=== PATIENT | female | born 1955 | race Caucasian/White ===

== ENCOUNTER 2017-06-06 03:01 | Inpatient (IN) | payer OTHER ==
[~2017-06-06] VITALS: Ht 157.5 cm; Wt 83.0 kg
[2017-06-06] VITALS (7 sets, daily range): BP systolic 139–174; BP diastolic 72–95
[2017-06-06 03:26] LABS: URINE BILIRUBIN NEGATIVE (Negative); URINE BLOOD 3+ (Negative); URINE COLOR YELLOW; URINE GLUCOSE-RANDOM* NEGATIVE (Negative); URINE KETONES NEGATIVE (Negative); URINE NITRITE NEGATIVE (Negative); URINE PROTEIN (DIPSTICK) TRACE (Negative); URINE UROBILINOGEN 0.2 E.U./dl (0.2-1.0)
[2017-06-06 03:39] LABS: CRYSTALS None Seen /LPF (None Seen); SQUAMOUS 0-3 Few /LPF (0-3); URINE WBC >25 Many /HPF (0-5)
[2017-06-06 03:41] LABS: BACTERIA 1-9 Few /HPF (None Seen); CASTS None Seen /LPF (None Seen); WBC CLUMPS Occasional (None Seen)
[2017-06-06 03:52] LABS: ABSOLUTE NEUTROPHILS 6.4 thou/uL (1.4-8.2); BASOPHILS 0.9 % (0.0-2.0); EOSINOPHILS 1.4 % (0.0-3.0); HEMATOCRIT 39.2 % (37.0-47.0); HEMOGLOBIN 13.3 gm/dL (12.0-15.0); LYMPHOCYTES 25.6 % (24.0-44.0); MCH 30.1 pg (26.0-34.0); MCHC 33.9 g/dL (28.0-37.0); MCV 88.8 fL (80.0-100.0); MONOCYTES 6.7 % (1.0-8.0); PLATELET COUNT 365 thou/uL (150-400); POLYS 65.4 % (36.0-66.0); RBC 4.42 mil/uL (4.20-5.00); RDW 13.8 % (10.5-14.5); WBC 9.8 thou/uL (4.0-11.0)
[2017-06-06 03:59] LABS: CALCIUM 9.1 mg/dL (8.5-10.1); CREATININE 0.7 mg/dL (0.6-1.0); POTASSIUM 3.7 mmol/L (3.5-5.1)
[2017-06-06 04:02] LABS: MANUAL DIFF NO
[2017-06-06] MEDS ORDERED: NAPROSYN500 MG PO (07:13)
[2017-06-06] MEDS ORDERED: SINGULAIR 10 MG10 M1 PO (07:13)
[2017-06-06] MEDS ORDERED: PRINIVIL20 MG PO (07:14)
[2017-06-06] MEDS ORDERED: METFORMIN HCL500 MG PO (07:14)
[2017-06-06] MEDS ORDERED: LEVOTHYROXIN0.075 MG PO (07:15)
[2017-06-06] MEDS ORDERED: OMEPRAZOLE20 M2 PO (07:16)
[2017-06-07 04:00] VITALS: BP 115/95; BP 150/77
[2017-06-07 06:58] VITALS: BP 160/94
[2017-06-07 13:12] LABS: POTASSIUM 3.6 mmol/L (3.5-5.1)
[2017-06-07 15:24] VITALS: BP 150/86
[2017-06-07 20:00] VITALS: BP 169/87
[2017-06-08 04:00] VITALS: BP 138/60
[2017-06-08 08:00] VITALS: BP 158/88
[2017-06-08 12:50] VITALS: BP 158/88
[2017-06-08] MEDS ORDERED: CIPRO500 MG PO (12:56)
[2017-06-08] MEDS ORDERED: PROBIOTIC1 EAC1 PO (12:56)
== END 2017-06-08 14:42 | disposition home or self-care (01) | DRG 690 ==
LOC: ER 03:01 → 4N 04:46 → EROBS 04:46 → 4N 05:02
PROVIDERS: Emergency Medicine; Internal Medicine
DX: N12 Tubulo-interstitial nephritis, not specified as acute or chronic (principal); I10 Essential (primary) hypertension; E11.9 Type 2 diabetes mellitus without complications; E78.00 Pure hypercholesterolemia, unspecified; F17.210 Nicotine dependence, cigarettes, uncomplicated; N28.89 Other specified disorders of kidney and ureter; B96.20 Unspecified Escherichia coli [E. coli] as the cause of diseases classified elsewhere; Z87.442 Personal history of urinary calculi; Z88.0 Allergy status to penicillin; Z88.8 Allergy status to other drugs, medicaments and biological substances; Z79.4 Long term (current) use of insulin; Z88.6 Allergy status to analgesic agent
CPT/HCPCS: 10091